=== PATIENT | male | born 1995 | race Caucasian/White ===

== ENCOUNTER 2018-10-15 18:01 | Emergency (ER) | payer MEDICAID ==
[~2018-10-15] VITALS: Ht 165.1 cm; Wt 90.5 kg
[2018-10-15 18:23] VITALS: BP 129/90
== END 2018-10-15 21:05 | disposition home or self-care (01) ==
LOC: EMS 18:03
DX: R19.7 Diarrhea, unspecified (principal); F41.9 Anxiety disorder, unspecified; R21 Rash and other nonspecific skin eruption

== ENCOUNTER 2018-10-19 14:41 | Emergency (ER) | payer MEDICAID ==
[~2018-10-19] VITALS: Ht 167.6 cm; Wt 88.6 kg
[2018-10-19 17:30] LABS: APPEARANCE,URINE CLEAR (CLEAR); BILIRUBIN,URINE NEGATIVE (NEGATIVE); GLUCOSE, URINE (UA) NEGATIVE (NEGATIVE); KETONES,URINE TRACE mg/dL (NEGATIVE); LEUKOCYTE ESTERASE ,URINE NEGATIVE (NEGATIVE); NITRATE,URINE NEGATIVE (NEGATIVE); OCCULT BLOOD,URINE NEGATIVE (NEGATIVE); PH,URINE 6.5 (5.0-8.0); PROTEIN,URINE NEGATIVE (NEGATIVE)
[2018-10-19] MEDS ORDERED: AZITHROMYCIN 250 MG TABLET PO ONE (18:30)
[2018-10-19] MEDS ORDERED: CefTRIAXone SODIUM 1 GM/VIAL IM ONE (18:30)
[2018-10-19 19:18] VITALS: BP 131/62
== END 2018-10-19 19:21 | disposition home or self-care (01) ==
LOC: EMS 14:42
DX: N50.812 Left testicular pain (principal); A64 Unspecified sexually transmitted disease; F17.210 Nicotine dependence, cigarettes, uncomplicated; F12.90 Cannabis use, unspecified, uncomplicated
CPT/HCPCS: 76870; 81003; 87491; 87591; 96372; 99284; J0696